=== PATIENT | female | born 1990 | race African-American/Black ===

== ENCOUNTER 2018-03-23 03:52 | Emergency (ER) | payer SELFPAY ==
[~2018-03-23] VITALS: Ht 157.5 cm; Wt 54.0 kg
[2018-03-23] MEDS ORDERED: SODIUM CHLORIDE 0.9% 1,000 ML IV ONE (07:15)
[2018-03-23] MEDS ORDERED: KETOROLAC 30MG/ML VIAL IV ONE (07:15)
[2018-03-23] MEDS ORDERED: ONDANSETRON HCL 4MG/2ML INJ IV ONE (07:15)
[2018-03-23 08:31] LABS: BASOPHILS % 0.4 % (0.0-2.0); EOSINOPHILS % 0.7 % (0.0-5.0); HEMATOCRIT. 37.3 % (36.0-48.0); HEMOGLOBIN. 12.7 g/dL (12.0-16.0); LYMPHOCYTES % 18.9 % (20.0-50.0); MEAN CORPUSCULAR HEMOGLOBIN 31.5 pg (28.0-32.0); MEAN CORPUSCULAR VOLUME 92.9 fL (81.0-99.0); MEAN PLATELET VOLUME 10.4 fl (7.4-10.4); MONOCYTES % 7.4 % (2.0-8.0); NEUTROPHILS % 72.6 % (40.0-76.0); PLATELET 168 x1000/uL (130-400); RED BLOOD CELL COUNT 4.02 mill/uL (4.2-5.4); RED CELL DISTRIBUTION WIDTH 13.6 % (11.6-14.6)
[2018-03-23 08:39] LABS: CHLORIDE 104 mEq/L (98-107)
[2018-03-23 11:40] VITALS: BP 125/72
== END 2018-03-23 11:45 | disposition home or self-care (01) ==
LOC: ER 03:52
DX: J02.9 Acute pharyngitis, unspecified (principal); F12.10 Cannabis abuse, uncomplicated; R11.0 Nausea; R42 Dizziness and giddiness
CPT/HCPCS: 36415; 80053; 81025; 85025; 96361; 96374; 96375; 99285; J1885; J2405; J7030; Z7610